=== PATIENT | male | born 1990 | race African-American/Black ===

== ENCOUNTER → 2020-02-05 14:15 | Outpatient (CLI) | payer OTHER, SELFPAY ==
--- NOTE | 2020-02-05 | DI.MRI.S_ITS ---
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 After the administration of contrast, axial and coronal 3D VIBE or T1 spin echo with fat saturation through the brain. COMPARISON: None. FINDINGS: Image quality: Excellent. CSF Spaces: Basal cisterns are patent. No extra-axial fluid collections. Ventricles are normal in size and shape. Brain: No midline shift. No intracranial bleeds or masses. No abnormal intracranial enhancement. The brainstem appears normal. Diffusion-weighted images demonstrate no acute ischemic insults. No chronic ischemic insults. Normal intravascular flow voids are present. Skull and face: Calvarial marrow is normal in signal. Orbits appear normal. Sinuses: Sinuses and mastoids appear clear. IMPRESSION: Normal for age, no suspicion for underlying white matter lesions in this patient at this time. No mass lesion seen. Visualized brainstem and upper half of the cervical spine seen on sagittal imaging appear normal. Dictated by: Hai Chopra M.D. on 02/05/2020 at 15:34 Approved by: Hai Chopra M.D. on 02/05/2020 at 15:35
== END ==
PROVIDERS: Referring Provider Psychiatry & Neurology Neurology; Visit Provider Psychiatry & Neurology Neurology
DX: G37.3 Acute transverse myelitis in demyelinating disease of central nervous system (principal); R20.2 Paresthesia of skin
CPT/HCPCS: 70553